=== PATIENT | male | born 1975 | race Caucasian/White ===

== ENCOUNTER 2017-07-12 09:30 | Outpatient (CLI) | payer BC ==
[~2017-07-12] VITALS: Ht 193 cm; Wt 72.6 kg
== END 2017-07-12 15:47 ==
LOC: PREOP 09:30
PROVIDERS: ATTEND Surgery
DX: Z01.818 Encounter for other preprocedural examination (principal); K82.8 Other specified diseases of gallbladder

== ENCOUNTER 2017-07-19 07:10 | Day surgery (SDC) | payer BC ==
[~2017-07-19] VITALS: Ht 193 cm; Wt 72.6 kg
[2017-07-19 07:25] VITALS: BP 126/85
[2017-07-19] MEDS ORDERED: ceFAZolin INJECTION 1,000 MG in NS (IVPB) 50 ML IV ONE (07:30)
[2017-07-19] MEDS: LACTATED RINGERS 1,000 ML IV PRN ×3 (07:35→10:52)
[2017-07-19 07:47] LABS: BASOPHILS # (AUTO) 0.1 10^3/uL (0.0-0.1); BASOPHILS % (AUTO) 1 % (0-10); EOSINOPHILS # (AUTO) 0.2 10^3/uL (0.0-0.3); EOSINOPHILS % (AUTO) 3 % (0-10); HEMATOCRIT 42 % (40-54); HEMOGLOBIN 14.6 G/DL (13.3-17.7); LYMPHOCYTES # (AUTO) 1.8 X 10^3 (1.0-4.0); LYMPHOCYTES % (AUTO) 36 % (12-44); MEAN CORPUSCULAR HEMOGLOBIN 32 PG (25-34); MEAN CORPUSCULAR HGB CONC 35 G/DL (32-36); MEAN CORPUSCULAR VOLUME 93 FL (80-99); MEAN PLATELET VOLUME 9.3 FL (7.4-10.4); MONOCYTES # (AUTO) 0.4 X 10^3 (0.0-1.0); MONOCYTES % (AUTO) 9 % (0-12); NEUTROPHILS # (AUTO) 2.5 X 10^3 (1.8-7.8); NEUTROPHILS % (AUTO) 51 % (42-75); PLATELET COUNT 229 10^3/uL (130-400); RED CELL DISTRIBUTION WIDTH 12.7 % (10.0-14.5); WHITE BLOOD COUNT 4.9 10^3/uL (4.3-11.0)
--- NOTE | 2017-07-19 08:05 | Progress Note-Pre Operative ---
Pre-Operative Progress Note H&P Reviewed The H&P was reviewed, patient examined and no changes noted. Date Seen by Provider: July 19, 2017 Time Seen by Provider: 07:50 Date H&P Reviewed: July 19, 2017 Time H&P Reviewed: 07:55 Pre-Operative Diagnosis: Symptomatic chronic acalculous cholecystitis ELIEZER ALMAZAN APRN July 19, 2017 8:05 am
[2017-07-19] MEDS ORDERED: BUP/EPI 0.5% 1:200,000 (SENSORCAINE) 30 ML VIAL ONE (08:13)
[2017-07-19] MEDS ORDERED: ONDANSETRON 4 MG/2 ML (SDV) Z0FRAN IVP PRN ×2 (08:15→10:30)
[2017-07-19] MEDS ORDERED: ACETAMINOPHEN 325 MG TABLET/CAPLET (TYLENOL) PO PRN (08:15)
[2017-07-19] MEDS ORDERED: morphine INJ 10 MG/ML 1ML (SYR OR VIAL) IVP PRN (08:15)
[2017-07-19] MEDS ORDERED: HYDROcodone/APAP 5 MG/325 MG (LORTAB) TAB PO ONE ×2 (08:15→15:00)
[2017-07-19] MEDS ORDERED: LIDOCAINE PF 2% 5 ML (XYLOCAINE) VIAL ONE (08:18)
[2017-07-19] MEDS ORDERED: DEXAMETHASONE 10 MG/ML (DECADRON) 1 ML VIAL ONE (08:18)
[2017-07-19] MEDS ORDERED: ROCURONIUM 10 MG/ML 5 ML SYRINGE IV ONE (08:18)
[2017-07-19] MEDS ORDERED: SEVOFLURANE (ULTANE) 15 ML INHAL SOLN ONE ×3 (08:18→10:03)
[2017-07-19] MEDS ORDERED: MIDAZOLAM 2 MG/2 ML (VERSED) VIAL ONE (08:18)
[2017-07-19] MEDS ORDERED: ONDANSETRON 4 MG/2 ML (SDV) Z0FRAN ONE (08:18)
[2017-07-19] MEDS ORDERED: proPOfol 200 MG/20 ML (DIPRIVAN) VIAL IV ONE (08:18)
[2017-07-19] MEDS ORDERED: fentaNYL INJECTION 100 MCG/2 ML AMP ONE (08:18)
[2017-07-19] MEDS ORDERED: GLYCOPYRROLATE 0.2 MG/ML (ROBINUL) 2 ML VIAL ONE ×2 (09:59→10:07)
[2017-07-19] MEDS ORDERED: NEOSTIGMINE 1 MG/ML 5 ML SYRINGE ONE (09:59)
--- NOTE | 2017-07-19 10:11 | Progress Note-Post Operative ---
Post-Operative Progess Note Surgeon (s)/Visual Educator (s) Surgeon ANGEL MULLEN MD Visual Educator: stef bernal OVEN WORKER Pre-Operative Diagnosis Symptomatic chronic acalculous cholecystitis Post-Operative Diagnosis same Procedure & Operative Findings Date of Procedure 07/19/17 Procedure Performed/Findings laparoscopic cholecystectomy Anesthesia Type GET Estimated Blood Loss Estimated blood loss (mL): minimal Specimens/Packing Specimens Removed gallbladder ANGEL MULLEN MD July 19, 2017 10:11 am
[2017-07-19] MEDS ORDERED: HYDR-34 PO (10:13)
--- NOTE | 2017-07-19 10:15 | Discharge Inst-Surgical ---
D/C Lap Instructions-SEBAS New, Converted, or Re-Newed RX: RX on Chart Follow Up Appt in 2 weeks Activity as tolerated No driving for 24 hours No driving while on pain medications Incentive Spirometry use every 2 hours while awake Regular Diet Symptoms to Report: Fever over 101 degree F, Nausea/Vomiting Infection Signs and Symptoms to report: Increased redness, Foul odor of wound, Increased drainage Bathing instructions: May shower Operative Area Clean/Dry; Keep incision clean/dry If any problems/questions: Contact your physician or go to Emergency Room ANGEL MULLEN MD July 19, 2017 10:15 am
[2017-07-19] MEDS ORDERED: MEPERIDINE (DEMEROL) INJ 50 MG/ML ONE (10:35)
[2017-07-19] MEDS: morphine INJ 10 MG/ML 1ML (SYR OR VIAL) IVP PRN ×2 (10:35→10:46)
[2017-07-19] MEDS: MEPERIDINE (DEMEROL) INJ 50 MG/ML IVP PRN ×2 (10:40→10:55)
[2017-07-19 11:20] VITALS: BP 120/76
[2017-07-19 11:50] VITALS: BP 116/79
[2017-07-19] MEDS ORDERED: HYDROcodone/APAP 5 MG/325 MG (LORTAB) TAB ONE ×2 (12:10→14:44)
[2017-07-19 12:20] VITALS: BP 107/64
[2017-07-19 12:30] VITALS: BP 107/64
[2017-07-19 12:50] VITALS: BP 115/78
[2017-07-19] MEDS ORDERED: MECLIZINE 25 MG (ANTIVERT) TAB PO ONE (14:00)
--- NOTE | 2017-07-19 15:30 | OPERATIVE REPORT ---
DATE OF SERVICE: 07/19/2017 ATTENDING PRIMARY CARE PHYSICIAN: Cristobal Overton DO PREOPERATIVE DIAGNOSIS: Symptomatic chronic acalculous cholecystitis. POSTOPERATIVE DIAGNOSIS: Symptomatic chronic acalculous cholecystitis. PROCEDURE: Laparoscopic cholecystectomy. SURGEON: Angel Mullen MD DIRECTOR OF RESEARCH CENTER: Lauri Vergara APRN ANESTHESIA: General endotracheal. ESTIMATED BLOOD LOSS: Minimal. FINDINGS: Dilated gallbladder as well as mild gallbladder wall inflammation. DISPOSITION: The patient tolerated the procedure well. INDICATIONS: The patient is a 41-year-old male, who has had pain in the right upper abdominal quadrant on several occasions; however, more recently, He reports that approximately a year and half ago, he had a significant amount of pain in the right upper abdominal quadrant with associated nausea and vomiting. A CT scan was performed at that time, which showed a dilated gallbladder as well as the possibility of hydrops of the gallbladder. He did get over this episode and decided to proceed with medical therapy with a low fat diet and he reports that he had done well over the year and half; however, has had several episodes of pain in the right upper abdominal quadrant with radiation towards the back and shoulder, as well as diarrhea. He reports that approximately two weeks ago, he did have a moderate episode with pain after eating a meal. DESCRIPTION OF PROCEDURE: The patient was brought to the operating room, laid supine on the table. After adequate IV pain and sedative medications and general endotracheal intubation, the abdomen was prepped and draped in standard surgical fashion. A 0.5% Marcaine with epinephrine was then used to anesthetize the overlying skin in the left upper abdominal quadrant and a small transverse skin incision made using a 15 blade. An 0 silk suture was applied to the medial aspect of the incision for retraction and a Veress needle inserted with a low opening pressure of 0 mmHg. The abdomen was then insufflated to 15 mmHg pressure. The Veress needle was removed and a 5 mm Xcel trocar placed followed by a 5 mm 45 degree angle laparoscope visualizing the peritoneal cavity. A 4-quadrant abdominal exploration was performed. There was a dilated gallbladder with mild gallbladder wall thickening. What was visualized of the liver, omentum, stomach appeared normal. Under direct visualization, we then proceed to place a supraumbilical 10 mm port after the skin and peritoneal lining were anesthetized with 0.5% Marcaine and a transverse skin incision made using a 15 blade. In a similar manner, a right upper abdominal quadrant 5 mm port was placed. The patient was then placed in steep reverse Trendelenburg position as well as plane right side up, left side down. The fundus of the gallbladder was then retracted anteriorly and superiorly. The hepatoduodenal ligament was then opened using electrocautery on the hook instrument as well as blunt dissection. The entire critical view of safety was identified including the cystic duct and artery as the only two structures going into the gallbladder, triangle of Calot as well as cystic plate behind the proximal gallbladder. Cystic duct and artery were then clipped proximally, distally and cut with EndoShears. The gallbladder was then dissected off of the liver bed using electrocautery and hook instrument with visualization of good hemostasis as well as no leaking ducts of Luschka. The gallbladder was removed through the 10 mm port site using an EndoCatch bag. The 10 mm port fascia and peritoneum were then closed under direct visualization using a Campbell-Viktor device and 0 Vicryl suture. The abdomen was desufflated and remaining ports removed. All skin incisions were closed using 4-0 Monocryl running subcuticular sutures. Wounds were then cleaned and covered with Dermabond. The patient tolerated the procedure well. We will start IV and oral pain medication as well as a clear liquid diet. Once he is tolerating clears, he has good pain control with oral pain medications. He is ambulating well. We will discharge him home. He is instructed to do no heavy lifting or exertion for the next two weeks. Job ID: [id number] DocumentID: [id number] Dictated Date: 07/19/2017 10:21:56 Mumps Developer Date: 07/19/2017 15:29:19 Dictated By: ANGEL MULLEN MD
== END 2017-07-19 15:08 | disposition home or self-care (01) ==
LOC: SDC 07:10
PROVIDERS: ATTEND Surgery
DX: K81.1 Chronic cholecystitis (principal)
CPT/HCPCS: 36415; 85025; 87081; 88304; 94664